=== PATIENT | male | born 1975 | race Caucasian/White ===

== ENCOUNTER 2021-09-12 08:56 | Outpatient (CLI) | payer OTHER, SELFPAY ==
--- NOTE | ~2021-09-12 | US_ITS ---
US retroperitoneal comp 09/12/2021 09:30 Procedure: Realtime transabdominal ultrasound of the kidneys and bladder. Indication: Elevated creatinine. Comparison: No prior studies for comparison. Findings: Renal echotexture is normal bilaterally without hydronephrosis, contour deforming mass or r enal calculus. The right kidney measures 12.7 cm and left kidney measures 12.9 cm. Bladder within no rmal limits. Impression: 1: Unremarkable renal ultrasound. No stones, masses or hydronephrosis. Reviewed, dictated and finalized at location B. [employer] Impression: 1: Unremarkable renal ultrasound. No stones, masses or hydronephrosis.
== END 2021-09-12 08:57 | disposition home or self-care (01) ==
PROVIDERS: PCP Internal Medicine; Visit Provider Internal Medicine
DX: N18.9 Chronic kidney disease, unspecified (principal)
CPT/HCPCS: 76770

== ENCOUNTER 2021-10-03 01:53 | Day surgery (SDC) | payer OTHER, SELFPAY ==
[2021-09-19 14:31] VITALS: BMI 28.6
[2021-10-03 08:12] VITALS: BP 126/78; PULSE 76; RESP 18; TEMP 36.7; O2SAT 99
[2021-10-03] MEDS: LACTATED RINGERS 1,000 ML 150 ML IV CONT (08:19)
--- NOTE | 2021-10-03 08:20 | WPDANESEPPF ---
Anes - Initial Pre Proc Eval Procedure: Operation Date: 10/03/21 09:00 Proposed Procedures p Screening Colonoscopy - Vin Trammell MD Date/Time: 10/03/21 08:20 Surgeon: Vin Trammell MD Pre Op Diagnosis: neoplasm screening Patient Data Age: 46 Gender: M Height: 1.8 m Weight: 93 kg Last Vital Signs Temp 36.7 C 10/03/21 08:12 Pulse 76 10/03/21 08:12 Resp 18 10/03/21 08:12 BP 126/78 10/03/21 08:12 Pulse Ox 99 10/03/21 08:12 Allergies Allergy/AdvReac Type Severity Reaction Status Date / Time No Known Allergies Allergy Verified 10/03/21 08:11 Home Medications Medication Instructions Recorded Confirmed Type cholecalciferol (vitamin D3) 125 125 mcg PO DAILY 07/25/21 09/19/21 History mcg (5,000 unit) capsule magnesium 250 mg tablet 250 mg PO DAILY 07/25/21 09/19/21 History omeprazole 20 mg tablet,delayed 20 mg PO DAILY #90 tablet 07/25/21 09/19/21 Rx release tadalafil 20 mg tablet 20 mg PO DAILY PRN #30 tablet 07/25/21 10/03/21 Rx Patient hx anesthesia problems: none Family hx anesthesia problems: none Results Review: All pre-operative results and documents have been reviewed as part of the pre-operative evaluation. [facility] Surgical History Surgical History (Updated 10/03/21 @ 08:21 by Yossi Virk MD) H/O cardiac radiofrequency ablation Family History Family History Father Hypertension Mother Family history of cardiovascular disease Social History Social History Smoking status: Never smoker Second hand tobacco smoke exposure: No Alcohol intake: current Drinks per week: 2 Alcohol use details: beer Substance use type: does not use Anes - Eval Final PreProcedure Day of Procedure 10/03/21 08:20 Patient weight: overweight Heart: regular rate and rhythm Lungs: clear to auscultation Airway: Mallampati scale class II Neurological: alert and oriented Last oral intake: >/= 8 hours ASA classification: II Emergent: no Anesthetic plan: proceed Anesthesia type and monitoring: general GIVS and standard monitoring Results Review: All pre-operative results and documents have been reviewed as part of the pre-operative evaluation. Informed Consent: The patient's anesthetic plan and its attendant risks and benefits were discussed with the patient/family/POA. Questions were solicited and answers provided to the satisfaction of the patient/family/POA.
--- NOTE | 2021-10-03 08:30 | PM.HPGS ---
History of Present Illness History of Present Illness Consent: Risks, benefits, and alternatives have been discussed and questions answered. Patient agrees to proceed with procedure. Chief complaint: neoplasm screening Narrative: Dirk Ramirez is a 46 year old male here for first screening colonoscopy Review of Systems Constitutional: Constitutional: Denies headache(s) and Denies weakness Eyes: Eyes: Denies blurry vision ENT: Reports Normal hearing present, Denies headache(s) and Denies neck pain Cardiovascular: Cardiovascular: Denies chest pain and Denies dyspnea Respiratory: Respiratory: Denies dyspnea Gastrointestinal: Gastrointestinal: Reports no additional gastrointestinal complaints Genitourinary: Genitourinary: Denies dysuria Musculoskeletal: Musculoskeletal: Denies neck pain Integumentary/Breasts: Skin/Breast: Denies dry skin Neurologic: Reports Normal hearing present, Denies headache(s) and Denies weakness Psychiatric: Psychiatric: Denies anxiety Endocrine: Endocrine: Denies change in body appearance Hematologic/Lymphatic: Hematologic/Lymphatic: Denies easy bleeding Allergic/Immunologic: Allergic/Immunologic: Denies urticaria [facility] Surgical History Surgical History (Updated 10/03/21 @ 08:21 by Yossi Virk MD) H/O cardiac radiofrequency ablation Family History Family History Father Hypertension Mother Family history of cardiovascular disease Social History Social History Smoking status: Never smoker Second hand tobacco smoke exposure: No Alcohol intake: current Drinks per week: 2 Alcohol use details: beer Substance use type: does not use Meds Home Medications and Allergies Home Medications Medication Instructions Recorded Confirmed Type cholecalciferol (vitamin D3) 125 125 mcg PO DAILY 07/25/21 09/19/21 History mcg (5,000 unit) capsule magnesium 250 mg tablet 250 mg PO DAILY 07/25/21 09/19/21 History omeprazole 20 mg tablet,delayed 20 mg PO DAILY #90 tablet 07/25/21 09/19/21 Rx release tadalafil 20 mg tablet 20 mg PO DAILY PRN #30 tablet 07/25/21 10/03/21 Rx Allergies Allergy/AdvReac Type Severity Reaction Status Date / Time No Known Allergies Allergy Verified 10/03/21 08:11 Vital Signs Vital Signs - 24 hr 10/03/21 08:12 Temperature 98.1 F Pulse Rate 76 Respiratory Rate 18 Blood Pressure 126/78 Pulse Oximetry 99 Exam Const: General: comfortable and no acute distress HENMT: General nose exam: Normal nares present Eyes: General: appearance normal, both eyes and all related structures Neck: Neck: no JVD Resp: Auscultation: clear to auscultation bilaterally Cardio: Rate: regular rate Rhythm: regular rhythm GI: Inspection: non-distended GI Palp: Yes Soft to palpation Skin: General skin exam: normal color Neuro: General: gait normal Speech: normal speech Extrem: General: normal to inspection Psych: Mental Status: mental status grossly normal Assessment and Plan Assessment and plan (1) Encounter for screening colonoscopy: Code(s): Z12.11 - Encounter for screening for malignant neoplasm of colon Status: Acute Assessment and Plan: colonoscopy
[2021-10-03 08:46] VITALS: BP 115/80; PULSE 70; RESP 16; O2SAT 99
[2021-10-03 08:56] VITALS: BP 119/87; PULSE 59; RESP 12; O2SAT 100
[2021-10-03 09:06] VITALS: BP 121/82; PULSE 66; RESP 16; O2SAT 100
== END 2021-10-03 09:15 | disposition home or self-care (01) ==
PROVIDERS: PCP Internal Medicine; Visit Provider Internal Medicine Gastroenterology
PROC: 0DJD8ZZ Inspection of Lower Intestinal Tract, Via Natural or Artificial Opening Endoscopic (ICD-10-PCS; CPT 45378; principal; 2021-10-03 09:00)
DX: Z12.11 Encounter for screening for malignant neoplasm of colon (principal); K57.30 Diverticulosis of large intestine without perforation or abscess without bleeding; K64.8 Other hemorrhoids
CPT/HCPCS: 45378; J2001; J2704; J7120